=== PATIENT | male | born 1980 | race Caucasian/White ===

== ENCOUNTER 2018-01-20 15:30 | Inpatient (IN) | payer OTHER, SELFPAY ==
[2018-01-20] MEDS: NICOTINE 21MG/24HR 1 EA TRANSDERMAL TD (09:00)
[2018-01-20] MEDS ORDERED: LORazepam 1 MG TAB PO (21:45)
[2018-01-20] MEDS ORDERED: MOM 30ML SUSPENSION UDC PO (21:45)
[2018-01-20] MEDS ORDERED: traZODone 50 MG TAB PO (21:45)
[2018-01-20] MEDS ORDERED: ACETAMINOPHEN TAB 650MG DOSE (2X325MG) PO (21:45)
[2018-01-20] MEDS ORDERED: MAALOX 30 ML SUSP *UDC PO (21:45)
[2018-01-21] MEDS: NICOTINE 21MG/24HR 1 EA TRANSDERMAL TD (08:38)
[2018-01-22 07:20] LABS: HEMATOCRIT 45.5 % (42.0-52.0); HEMOGLOBIN 15.5 g/dl (13.5-17.5); MEAN CORPUSCULAR HEMOGLOBIN 30.9 pg (27.0-33.0); MEAN CORPUSCULAR HGB CONC 34.1 g/dl (32.0-36.5); MEAN CORPUSCULAR VOLUME 90.8 fl (80.0-96.0); PLATELET COUNT, AUTOMATED 309 10^3/uL (150-450); RED BLOOD COUNT 5.01 10^6/uL (4.30-6.10); RED CELL DISTRIBUTION WIDTH 12.4 % (11.5-14.5); WHITE BLOOD COUNT 9.5 10^3/uL (4.0-10.0)
[2018-01-22] MEDS: NICOTINE 21MG/24HR 1 EA TRANSDERMAL TD (08:00)
== END 2018-01-22 11:20 | disposition home or self-care (01) | DRG 754 ==
LOC: M ED 15:30 → M ED INP 19:24 → M PSY 20:23
DX: F43.21 Adjustment disorder with depressed mood (principal); Z88.5 Allergy status to narcotic agent; F17.200 Nicotine dependence, unspecified, uncomplicated; D72.829 Elevated white blood cell count, unspecified